=== PATIENT | female | born 1995 | race Caucasian/White ===

== ENCOUNTER 2021-11-07 16:35 | Outpatient (REF) | payer BC, SELFPAY ==
--- NOTE | 2021-11-07 16:00 | PAPFT_PTH ---
PATIENT: Erika Macdonald LOC: [facility] U#:[id number] AGE/SX: 26/F ROOM: RE11/07/[address]: Swetha Smyth : 1995 BED: DIS: 11/07/2021 SPEC #: [id number] RECD: 11/07/21 18:08 STATUS: NORMA BARNES #: [id number] MARC: 11/07/21 16:[address]: Swetha Smyth DEPT: [facility] Cytology RECD BY: Joselyn Garcia ENTERED: 11/07/21 18:08 SP TYPE: PAPFT OTHR DR: Gala Copeland APRN Tissues: 1 - CX/ENDOCX FOR PAP SMEARS Procedures: PAP THIN PREP/UVM Screening Comments: [id number]
[2021-11-09 15:07] LABS: Chlamydia Result Negative (Negative); GC Result Negative (Negative)
== END 2021-11-07 16:36 | disposition home or self-care (01) ==
LOC: LBN 16:35
PROVIDERS: PCP Nurse Practitioner; Visit Provider Obstetrics & Gynecology Gynecology
DX: Z11.3 Encounter for screening for infections with a predominantly sexual mode of transmission (principal); Z12.4 Encounter for screening for malignant neoplasm of cervix
CPT/HCPCS: 87491; 87591; 88142

== ENCOUNTER 2021-12-04 05:48 | Outpatient (CLI) | payer BC, SELFPAY ==
[2021-12-04 07:25] LABS: HCT 44.2 % (36.0-46.0); HGB 13.7 g/dL (11.2-15.7); MCH 26.3 pg (27.0-33.0); MPV 9.9 fL (8.0-11.0); Platelet Count 293 10^3/uL (130-400); RDW 15.9 % (11.7-14.6); RDW-SD 49.5 fL; WBC 10.04 10^3/uL (4.4-10.8)
[2021-12-04 07:41] LABS: Hemoglobin A1C 6.4 % (<5.7)
[2021-12-04 07:58] LABS: ALT 29 U/L (14-59); AST 14 U/L (15-37); Albumin 3.3 g/dL (3.4-5.0); Alkaline Phosphatase 57 U/L (46-116); Anion Gap 6.6 mmol/L (3-11); BUN 17 mg/dL (7-18); Bilirubin, Total 0.2 mg/dL (0.2-1.0); CO2 29.4 mmol/L (21.0-32.0); CREATININE 0.7 mg/dL (0.55-1.02); Calcium 8.7 mg/dL (8.5-10.1); Calculated LDL 134 mg/dL (<100); Chloride 106 mmol/L (98-107); Cholesterol 214 mg/dL (<200); Glucose 107 mg/dL (74-106); HDL Cholesterol 32 mg/dL (40-60); Potassium 4.4 mmol/L (3.5-5.1); Sodium 142 mmol/L (136-145); TSH (W/Ref FT4) 17.24 uIU/mL (0.36-3.74); Total Protein 7.1 g/dL (6.4-8.2); Triglyceride 241 mg/dL (<150)
[2021-12-04 08:20] LABS: FREE T4 0.61 ng/dL (0.76-1.46)
== END 2021-12-04 05:49 | disposition home or self-care (01) ==
LOC: LBO 05:48
PROVIDERS: PCP Nurse Practitioner; Visit Provider Nurse Practitioner
DX: I10 Essential (primary) hypertension (principal); E66.01 Morbid (severe) obesity due to excess calories; N91.5 Oligomenorrhea, unspecified
CPT/HCPCS: 36415; 80053; 80061; 85027; 83036; 84439; 84443

== ENCOUNTER 2022-01-02 04:35 | Outpatient (CLI) | payer BC, SELFPAY ==
--- NOTE | 2022-01-02 15:00 | NS.NUTBLAN_ITS ---
Erika was referred to medical nutrition therapy for weight and glycemic management. PMH: hypothyroidism, prediabetes, morbid obesity, HTN 5'2 364 lbs BMI: 67 11/30/21: A1C: 6.4% Chol: 214, LDL: 135, HDL: 32, tri TSH high- just started Synthroid Prescribed Jardiance .25 mg1 week- has not picked up yet Diet Recall: skips Breakfast, Lunch: granola bar and water, Dinner: sandwich and milk. Is a vegetarian- will eat eggs, cheese and beans for protein. Dislikes tofu and tempeh. Drinks mostly water. Also drinks 1% milk as beverage often Exercise: None at this time: walks at her work. Works 2 jobs- on her feet most of day Erika reports that she weighed 200 lbs by the time she was 7 years old. Her whole family is big. Her uncle had weight loss surgery a couple years ago but regained most of the weight. Did not adhere to diet post op. Erika wants to be healthier. She does not overeat and likes vegetables. Often has to force herself to eat- very picky. Has been frustrated about gaining weight without eating large quantities. We discussed benefits of bariatric surgery for significant weight loss. She is interested in pursuing this avenue. Also, educated Erika on how to follow a 1200 kcal meal plan with focuses on 3 meals per day, using protein shakes to meet protein needs while a vegetarian. Encouraged her to add 2 protein shakes daily (B,L) and to eat 1/2 plate of family meal at night and a plateful of salad/vegetables. She is already taking MVI and Vit D. Goal Wt Loss: 10 lbs q 4 weeks. Follow up scheduled for 02/08/22 at 2 pm
== END 2022-01-02 04:36 | disposition home or self-care (01) ==
LOC: DS 04:35
PROVIDERS: PCP Nurse Practitioner; Visit Provider Dietitian, Registered
DX: E66.01 Morbid (severe) obesity due to excess calories (principal); R73.03 Prediabetes; Z68.44 Body mass index [BMI] 60.0-69.9, adult; Z71.3 Dietary counseling and surveillance
CPT/HCPCS: 97802

== ENCOUNTER 2022-02-06 01:54 | Outpatient (CLI) | payer BC, SELFPAY ==
[2022-02-06 08:00] LABS: TSH (W/Ref FT4) 8.88 uIU/mL (0.36-3.74)
[2022-02-06 08:21] LABS: FREE T4 0.81 ng/dL (0.76-1.46)
== END 2022-02-06 01:55 | disposition home or self-care (01) ==
LOC: LBO 01:54
PROVIDERS: PCP Nurse Practitioner; Visit Provider Nurse Practitioner
DX: E03.9 Hypothyroidism, unspecified (principal)
CPT/HCPCS: 36415; 84439; 84443

== ENCOUNTER 2022-02-08 03:45 | Outpatient (CLI) | payer BC, SELFPAY ==
--- NOTE | 2022-02-08 11:00 | NS.NUTBLAN_ITS ---
Erika returns for weight management education. Wt: 358 lbs, 5'2 - down 6 lbs in last 30 days. BMI: 66 Diet Recall: Muscle milk protein shake for B, L. Salad with shrimp or cottage cheese at night. Mostly vegetarian. Session today focused on protein sources that she will consume as a vegetarian. She includes shrimp, cheese, eggs. She enjoys salads but reports that she often has to remind herself to eat. She was pleased that she was able to lose by eating more food. Erika has a referral from her PCP for [facility] bariatric program. She has had a difficult time getting ahold of them and scheduling the intro session. We called [facility] together and sat on hold for 20 minutes. [facility] Director will contact Bariatric chief program officer to assist in getting Erika started on her weight loss journey. Follow up scheduled for 03/15/22 at 2 pm.
== END 2022-02-08 03:46 | disposition home or self-care (01) ==
LOC: DS 03:46
PROVIDERS: PCP Nurse Practitioner; Visit Provider Dietitian, Registered
DX: E66.01 Morbid (severe) obesity due to excess calories (principal); Z68.44 Body mass index [BMI] 60.0-69.9, adult; Z71.3 Dietary counseling and surveillance
CPT/HCPCS: 97803

== ENCOUNTER 2022-03-22 01:47 | Outpatient (CLI) | payer BC, SELFPAY ==
--- NOTE | 2022-03-22 14:00 | NS.NUTBLAN_ITS ---
Erika returns for weight management education prior to bariatric surgery at [facility] [place]. 5'2 357 lbs? BMI: 66 11/30/21: A1C: 6.4% TSH high- just started Synthroid, Jardiance, multi vitamin and Vit D. Diet Recall: B: protein shake, L: caesar salad and protein shake, D: morning star burger- no bun and vegetables. Erika has lost 7 lbs since starting to follow a lower carb, higher protein diet. She has switched to a higher protein shake (Muscle Milk Pro- 32 g pr/shake) as she finds it difficult to meet her protein needs as a vegetarian. She includes eggs and morning star products, sometimes tofu. She continues to be active during day, walking daily for about 20 minutes. She recently received a packet of info to fill out for [facility] [place] [place]. She has completed her 3 visits with dietitian and has done well. No follow up planned until after surgery. Will be available prn.
== END 2022-03-22 01:48 | disposition home or self-care (01) ==
LOC: DS 01:47
PROVIDERS: PCP Nurse Practitioner; Visit Provider Dietitian, Registered
DX: E66.01 Morbid (severe) obesity due to excess calories (principal); Z68.44 Body mass index [BMI] 60.0-69.9, adult; Z71.3 Dietary counseling and surveillance
CPT/HCPCS: 97803

== ENCOUNTER 2022-04-05 01:21 | Outpatient (CLI) | payer BC, SELFPAY ==
[2022-04-05 08:15] LABS: TSH 5.18 uIU/mL (0.36-3.74)
== END 2022-04-05 01:22 | disposition home or self-care (01) ==
LOC: LBO 01:21
PROVIDERS: PCP Nurse Practitioner; Visit Provider Nurse Practitioner
DX: E03.9 Hypothyroidism, unspecified (principal)
CPT/HCPCS: 36415; 84439; 84443

== ENCOUNTER 2022-08-27 19:54 | Emergency (ER) | payer BC, SELFPAY ==
[2022-08-27 20:03] VITALS: BP 148/85; PULSE 87; RESP 18; TEMP 37; O2SAT 97
--- NOTE | 2022-08-27 20:43 | ED.GENADUL_ITS ---
Discharge Plan Disposition Patient Disposition: Home Condition: Stable Discharge Details Clinical Impression: Cellulitis Primary Care Provider: Gala Copeland ED Provider: John Watson Home Meds and New Rx's Prescriptions: New sulfamethoxazole-trimethoprim [Bactrim DS] 800-160 mg tablet 1 tab PO BID Qty: 20 0RF erythromycin 5 mg/gram (0.5 %) ointment 0.5 inch ophthalmic (eye) QID Qty: 3.5 0RF Continued multivitamin Tablet 1 tab PO DAILY cholecalciferol (vitamin D3) 25 mcg (1,000 unit) capsule 25 mcg PO DAILY hydrochlorothiazide 25 mg tablet 25 mg PO DAILY Qty: 90 3RF COVID-19 vacc,mRNA(Moderna)-PF 100 mcg/0.5 mL suspension 0.25 ml IM ONCE Qty: 0.25 0RF metformin 500 mg tablet 500 mg PO BID Qty: 60 3RF levothyroxine 75 mcg tablet 75 mcg PO DAILY Qty: 90 3RF medroxyprogesterone [Provera] 5 mg tablet 10 mg PO DAILY 28 Days Qty: 120 3RF norethindrone acetate [Aygestin] 5 mg tablet 5 mg PO BID Qty: 120 1RF Discharge Instructions Instructions: Cellulitis (ED) Additional Instructions: Erythromycin and Ilotycin as directed. Warm moist compresses every 2 hours for 20 minutes. Please watch for new or worsening symptoms and return to the ER for any concerns. Lastly, I recommend contacting your primary care provider tomorrow to discuss your ER visit, ongoing symptoms, and need for outpatient reevaluation. Medical Decision Making 27-year-old female with a past medical history of hypertension, hypothyroidism, obesity, prediabetes, does not wear contacts or glasses, presents for what she describes as left eye irritation that began this morning, subsequently throughout the day noticed minor erythema and swelling to her upper lid, had small amount of drainage this evening. She denies any change of vision. Visual acuities 20/20 left 20/30 right 20/30 bilateral. She denies any other symptoms such as headache, fever, nasal congestion, sore throat, etc. Clinically she appears well, nontoxic, afebrile. Given her mild conjunctival erythema, discharge, question conjunctivitis. Denies any injury or trauma. Given her minimal swelling of her left upper lid, erythema, no evidence of stye, concern for mild localized cellulitis. Clinically there does not appear to be any obvious evidence of orbital cellulitis. Denies any pain with movement of her eye. Plan to treat with erythromycin topically as well as p.o. Bactrim. We will provide first dose now. Standard discharge and return precautions were provided. Patient understands, is agreeable to this plan, and has no additional questions or concerns upon discharge. This documentation was generated using [employer] dictation system, please disregard any oddities of phrase or misspellings. Medical Records Medical records reviewed: Yes I reviewed the patient's medical records. HPI General Mode of arrival: ambulatory . Date/Time Provider Initiated Documentation: 08/27/22 20:12 . Limitations to Documentation: no limitations . Information obtained by: patient and family . History of Present Illness 27 year old F presents to the emergency department with the chief complaint of L eye infection, described as mild, with intensity rated at 3. Quality is described as aching, and is localized to the eyes (Periorbital region) and left. Patient reports no radiation. Patient started experiencing this hour(s) (13) and it has been constant. No relieving factors improve symptom(s), No exacerbating factors reported . Patient notes no other symptoms.. Patient did receive the following treatments prior to arrival, none Related Data Home Medications Medication Instructions Recorded Confirmed cholecalciferol (vitamin D3) 25 25 mcg PO DAILY 10/30/21 06/17/22 mcg (1,000 unit) capsule multivitamin 1 tab PO DAILY 10/30/21 06/17/22 hydrochlorothiazide 25 mg tablet 25 mg PO DAILY #90 tabs 12/10/21 06/17/22 levothyroxine 75 mcg tablet 75 mcg PO DAILY #90 tabs 02/06/22 06/17/22 medroxyprogesterone 5 mg tablet 10 mg PO DAILY 4 weeks #120 tabs 03/19/22 06/17/22 (Provera) norethindrone acetate 5 mg tablet 5 mg PO BID #120 tabs 03/20/22 06/17/22 (Aygestin) metformin 500 mg tablet 500 mg PO BID #60 tabs 06/17/22 06/17/22 erythromycin 5 mg/gram (0.5 %) eye 0.5 inch ophthalmic (eye) QID #3.5 08/27/22 ointment grams sulfamethoxazole 800 1 tab PO BID #20 tabs 08/27/22 mg-trimethoprim 160 mg tablet (Bactrim DS) Previous Rx's Medication Instructions Recorded hydrochlorothiazide 25 mg tablet 25 mg PO DAILY #90 tabs 12/10/21 levothyroxine 75 mcg tablet 75 mcg PO DAILY #90 tabs 02/06/22 medroxyprogesterone 5 mg tablet 10 mg PO DAILY 4 weeks #120 tabs 03/19/22 (Provera) norethindrone acetate 5 mg tablet 5 mg PO BID #120 tabs 03/20/22 (Aygestin) metformin 500 mg tablet 500 mg PO BID #60 tabs 06/17/22 erythromycin 5 mg/gram (0.5 %) eye 0.5 inch ophthalmic (eye) QID #3.5 08/27/22 ointment grams sulfamethoxazole 800 1 tab PO BID #20 tabs 08/27/22 mg-trimethoprim 160 mg tablet (Bactrim DS) Allergies Allergy/AdvReac Type Severity Reaction Status Date / Time No Known Allergies Allergy Verified 01/09/22 15:07 General Stated Complaint: EyeProblem SEBASTIÁN: 4 Review of Systems Constitutional Constitutional: Denies fever(s) and Denies headache(s) Eyes Eyes: Denies change in vision, Reports eye discharge and Reports irritation ENT Ears, Nose, Mouth, and Throat: Denies headache(s) and Denies neck pain Musculoskeletal Musculoskeletal: Denies neck pain Integumentary/Breasts Skin/Breast: Reports erythema Neurologic Neurologic: Denies headache(s) PFSH All Active Problems (Updated 08/27/22 @ 20:56 by TEJAL Terrell) Cellulitis (Acute) Abnormal uterine bleeding (AUB) (Acute) Pre-diabetes (Acute) HTN (hypertension), benign (Acute) Hypothyroidism (Chronic) Contraceptive surveillance, unspecified (Acute) 10/2021. Pt not sexually active. Morbid obesity with BMI of 60.0-69.9, adult (Acute) Oligomenorrhea (Acute) 10/2021. No menses x 1yr. 11/2021 agrees to q3mo Provera induced withdrawal bleed. Surgical History History of cholecystectomy (~09/24/12) Family History Maternal Grandmother Anxiety Heart disease Hypertension Maternal Uncle Asthma Heart disease Hypertension Brother Asthma Maternal Cousin Asthma Maternal Aunt Asthma Paternal Cousin Lung cancer Maternal Grandfather Cancer Diabetes Hypertension Paternal Grandfather , Heart attack Diabetes Heart disease Hypertension Paternal Grandmother Multiple sclerosis Other Depression Social History Smoking/Tobacco Use Status: Never Second Hand Exposure: No Smoking risk assessment performed?: Yes Alcohol Intake: current Alcohol Intake frequency: a few times a month Drug use: Never Substance use type: does not use Adopted: No Caregiver/Support person: No Foster care: No Household members: family and other Details: Multiple family members live in her uncle's house Housing: house Number of Children: 0 number of grandchildren: 0 Communication Needs: None Education Level: high school Do you need help understanding health information?: Rarely 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[employer], 4, 5, 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[employer] [place] Pets and animals: Yes Pets and animals: cat(s) Sexually active: Yes Do you think of yourself as: straight/heterosexual Current gender identity: female What is your relationship status?: never How often do you talk on the phone with friends or family?: never How often do you get together with friends or relatives?: twice per week Do you belong to any clubs or organized social groups?: no Panel score (0-1 are the most socially isolated patients): 0 What type of physical activity do you participate in: none Special katya needs: No Seatbelt use: always Helmet use: Yes Helmet use: always Drive intox or ride w/intox mobile lounge driver or operator: No Do you feel safe at home: Yes Do you feel safe in your relationship?: Yes Female Reproductive History Menstrual Age of Menarche: 11 control method: none History History 0 Para Hx # Term Pregnancies Multiple births Hx # Pregnancies Ectopic pregnancies AB induced Hx Number of Living Children AB spontaneous Exam Const General: cooperative, healthy appearing, comfortable and no acute distress Orientation: alert and awake HENMT Head: normal to inspection, normocephalic and atraumatic General nose exam: external nose normal Mouth: oral mucosae normal and moist mucous membranes Eyes Alignment and Position: alignment normal Periorbital: periorbital findings abnormal left periorbital erythema Eyelids: eyelid abnormality left upper eyelid erythema, swelling and tenderness Conjunctivae: conjunctival abnormality left conjunctival injection Sclera: sclerae normal Cornea: corneas normal Pupils: PERRL EOM: EOM intact bilaterally Direct ophthalmoscopy: normal light reflex Neck Neck: normal visual inspection, full ROM, no meningeal signs, trachea midline and supple Resp Effort & Inspection: normal respiratory effort and able to speak in complete sentences Skin General skin exam: erythema Neuro General: patient alert, patient awake, moves all extremities and no focal motor deficits Cognition: normal cognition Speech: speech normal Gait: normal gait Sensory Exam: no sensory deficits noted Psych Appearance: grossly normal Mental Status: mental status grossly normal Course Vital Signs Vital signs: Vital Signs Temperature 37.0 C 08/27/22 20:03 Pulse 87 08/27/22 20:03 Respiratory Rate 18 08/27/22 20:03 Blood Pressure 148/85 H 08/27/22 20:03 Pulse Oximetry 97 08/27/22 20:03 Temperature 37.0 C 08/27/22 20:03 Temperature Source Tympanic 08/27/22 20:03 Pulse 87 08/27/22 20:03 Respiratory Rate 18 08/27/22 20:03 Respiratory Effort 08/27/22 20:10 Blood Pressure 148/85 H 08/27/22 20:03 Blood Pressure Position Sitting 08/27/22 20:03 Pulse Oximetry 97 08/27/22 20:03 Oxygen Delivery Method Room Air 08/27/22 20:03 Oxygen Flow Rate 0 08/27/22 20:03 Pain Level 6 08/27/22 20:03 PAWSS Have you Been Recently Intoxicated or Drunk Within the Last 30 days?: No Have you Ever Experienced Previous Episodes of Alcohol Withdrawal?: No Have you ever Experienced Withdrawal Seizures?: No Have you ever Experienced Delirium Tremens(DT)s?: No Have you ever undergone Alcohol Rehabilitation Treatment (i.e, inpt ot outpatient treatment programs)?: No Have you ever Experienced Blackouts?: No Have you ever Combined Alcohol with other Downers within the last 90 days?: No Have you ever Combined Alcohol with any other Substance of Abuse during the last 90 days?: No Positive Blood Alcohol level on Presentation? [PCS.BAL]: No Evidence of Increased Autonomic Activity (i.e. HR>120, tremor, sweating, agitation, nausea)?: No Result: 0
[2022-08-27] MEDS: Sulfameth/Trimeth DS TAB 1 TAB PO (20:51)
[2022-08-27] MEDS: Erythromycin Ophth Oint 3.5 GM TUBE OU (20:51)
== END 2022-08-27 21:03 | disposition home or self-care (01) ==
PROVIDERS: Emergency Provider Physician Assistant; PCP Nurse Practitioner
DX: H00.034 Abscess of left upper eyelid (principal)
CPT/HCPCS: 99283; 99284

== ENCOUNTER 2022-11-13 03:08 | Outpatient (CLI) | payer BC, SELFPAY ==
[2022-11-13 07:11] LABS: HCT 39.8 % (36.0-46.0); HGB 12.6 g/dL (11.2-15.7); MCHC 31.7 % (32.0-36.0); MCV 79 fL (80-95); MPV 9.3 fL (8.0-11.0); Platelet Count 340 10^3/uL (130-400); RBC 5.05 10^6/uL (3.93-5.22); RDW 17.6 % (11.7-14.6); RDW-SD 49.8 fL; WBC 7.77 10^3/uL (4.4-10.8)
[2022-11-13 07:58] LABS: ALT 31 U/L (14-59); AST 17 U/L (15-37); Albumin 3.2 g/dL (3.4-5.0); Alkaline Phosphatase 46 U/L (46-116); Anion Gap 5.6 mmol/L (3-11); BUN 21 mg/dL (7-18); Bilirubin, Total 0.2 mg/dL (0.2-1.0); CO2 32.4 mmol/L (21.0-32.0); CREATININE 0.8 mg/dL (0.55-1.02); Calcium 9.1 mg/dL (8.5-10.1); Calculated LDL 128 mg/dL (<100); Chloride 104 mmol/L (98-107); Cholesterol 192 mg/dL (<200); Estimated GFR 102.22 (mL/min/1.73m2); Glucose 101 mg/dL (74-106); HDL Cholesterol 37 mg/dL (40-60); Potassium 3.6 mmol/L (3.5-5.1); Sodium 142 mmol/L (136-145); TSH (W/Ref FT4) 4.08 uIU/mL (0.36-3.74); Total Protein 7.8 g/dL (6.4-8.2); Triglyceride 136 mg/dL (<150)
[2022-11-13 08:23] LABS: FREE T4 0.99 ng/dL (0.76-1.46)
== END 2022-11-13 03:09 | disposition home or self-care (01) ==
LOC: LBO 03:08
PROVIDERS: PCP Nurse Practitioner; Visit Provider Nurse Practitioner
DX: E03.9 Hypothyroidism, unspecified (principal); E78.5 Hyperlipidemia, unspecified; I10 Essential (primary) hypertension; R73.03 Prediabetes
CPT/HCPCS: 36415; 80053; 80061; 85027; 84439; 84443

== ENCOUNTER 2023-09-09 07:27 | Emergency (ER) | payer BC, SELFPAY ==
[2023-09-09 07:30] VITALS: BP 167/65; PULSE 89; RESP 20; TEMP 37.2; O2SAT 100
--- NOTE | 2023-09-09 07:51 | ED.GENADUL_ITS ---
HPI General Date/Time Provider Initiated Documentation: 09/09/23 07:36 . HPI Narrative: 28-year-old female with a past medical history of hypertension, hypothyroidism, diabetes, a BMI of 63, who presents today for evaluation of pain in her right hand and forearm. Patient states that for the last 1 to 2 months she has had intermittent tingling and pain in her right hand and forearm which usually occurs at night while she is sleeping. It gets better in the day when she wakes up. She denies any trauma. She denies any headache or neck pain. She denies any previous surgeries. However today symptoms persisted after this morning when she woke up and she continues to have mild achiness and pain in her right hand and forearm. She denies fever or chills. She denies any IV or illicit drug use. No other complaints at this time. Pain is slightly made worse with movement of the hand and fingers, especially extension of the hand/wrist. She denies any focal trauma to that area. Related Data Home Medications Medication Instructions Recorded Confirmed cholecalciferol (vitamin D3) 25 25 mcg PO DAILY 10/30/21 09/09/23 mcg (1,000 unit) capsule multivitamin 1 tab PO DAILY 10/30/21 09/09/23 hydrochlorothiazide 25 mg tablet 25 mg PO DAILY #90 tabs 12/23/22 09/09/23 levothyroxine 75 mcg tablet 75 mcg PO DAILY #90 tabs 03/19/23 09/09/23 metformin 500 mg tablet 1,000 mg (2 x 500 mg) PO DAILY 03/19/23 09/09/23 #180 tabs Previous Rx's Medication Instructions Recorded hydrochlorothiazide 25 mg tablet 25 mg PO DAILY #90 tabs 12/23/22 levothyroxine 75 mcg tablet 75 mcg PO DAILY #90 tabs 03/19/23 metformin 500 mg tablet 1,000 mg (2 x 500 mg) PO DAILY 03/19/23 #180 tabs Allergies Allergy/AdvReac Type Severity Reaction Status Date / Time No Known Allergies Allergy Verified 09/09/23 07:34 General Stated Complaint: Cellulitis SEBASTIÁN: 3 Review of Systems All systems reviewed & are unremarkable except as noted in HPI and below Exam Narrative Exam Narrative: 1.Const: Well-nourished, Well-developed, appearing stated age 2.Eyes: PERRL, no conjunctival injection, and symmetrical lids. 3.ENT: Atraumatic external nose and ears. Moist MM. Neck: Symmetric, trachea midline, No thyromegaly. 4.CVS: +S1/S2, No murmurs or gallops. Peripheral pulses 2+ and equal in all extremities. Brisk capillary refill in all extremities. 5.RESP: Unlabored respiratory effort. Clear to auscultation bilaterally. No wheezes rales or rhonchi 6.GI: Soft, Nontender/Nondistended, No hepatosplenomegaly. No guarding or rebound. 7.MSK: Normocephalic/Atraumatic, Extremities w/o deformity or ttp No cyanosis or clubbing, Normal movement of all extremities. Patient demonstrates worsening pain in the hand with extension at the wrist, and stretching of the carpal tunnel. Negative Finklestein's test. No erythema for the hand wrist or forearm. No focal tenderness over the wrist. 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 Good abduction and movement of the thumb and index finger. Good opposition. No pain in the forearm or elbow. Patient does have mild spasm of the scalene musculat ure in the right neck. No focal tenderness though otherwise. 8.Skin: Warm, Dry. No rashes or lesions. 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 Sensation grossly intact, no focal neurologic deficits. 10.Psych: (AAO) x3. Appropriate mood and affect Course Vital Signs Vital signs: Vital Signs Temperature 37.2 C 09/09/23 07:30 Pulse 89 09/09/23 07:30 Respiratory Rate 20 09/09/23 07:30 Blood Pressure 167/65 H 09/09/23 07:30 Pulse Oximetry 100 09/09/23 07:30 Temperature 37.2 C 09/09/23 07:30 Temperature Source Temporal Artery Scan 09/09/23 07:30 Pulse 89 09/09/23 07:30 Respiratory Rate 20 09/09/23 07:30 Respiratory Effort Normal, Non-Labored 09/09/23 07:35 Blood Pressure 167/65 H 09/09/23 07:30 Blood Pressure Position Sitting 09/09/23 07:30 Pulse Oximetry 100 09/09/23 07:30 Oxygen Delivery Method Room Air 09/09/23 07:30 Oxygen Flow Rate 0 09/09/23 07:30 Medical Decision Making 28-year-old female with a past medical history of hypertension, hypothyroidism, diabetes, a BMI of 63, who presents today for evaluation of pain in her right hand and forearm. Patient states that for the last 1 to 2 months she has had intermittent tingling and pain in her right hand and forearm which usually occurs at night while she is sleeping. It gets better in the day when she wakes up. She denies any trauma. She denies any headache or neck pain. She denies any previous surgeries. However today symptoms persisted after this morning when she woke up and she continues to have mild achiness and pain in her right hand and forearm. She denies fever or chills. She denies any IV or illicit drug use. No other complaints at this time. Pain is slightly made worse with movement of the hand and fingers, especially extension of the hand/wrist. She denies any focal trauma to that area. Physical exam demonstrates no concerning abnormalities to suggest cellulitis trauma fracture or other significant abnormalities. The patient's distribution of tingling and irritation in the hand, as well as the scalene spasm noted in her neck, I am concerned for potential carpal tunnel syndrome primarily, and then thoracic outlet syndrome secondarily. No indication for emergent imaging at this time with an absence of a history of trauma. Will recommend stretching exercises for wrist and neck, will give wrist splint for carpal tunnel rest, will recommend continued NSAIDs at home as well as outpatient physical therapy. If patient's symptoms persist she may need further neuroimaging or potential osseous imaging, however at this time no indication for emergent imaging based on current clinical exam and assessment. Patient otherwise stable. Discussed red flags for which to return. I have extensively reviewed the treatment plan and discharge instructions with the patient and their family. I have addressed all patient concerns at this time. The patient and family was made aware of what symptoms to monitor for that would warrant a return to the emergency department. Discussed the plan with the patient and family, they demonstrate verbal understanding and agreement with our assessment and plan at this time. The documentation in this chart was dictated using [employer] dictation software. Please excuse any dictation errors. Quality:SDOH Health Related Social Needs: No Data to Display PFSH All Active Problems Nerve pain (Acute) Carpal tunnel syndrome (Acute) Thoracic outlet syndrome (Acute) Hyperlipidemia (Acute) Abnormal uterine bleeding (AUB) (Acute) Pre-diabetes (Acute) HTN (hypertension), benign (Acute) Hypothyroidism (Chronic) Contraceptive surveillance, unspecified (Acute) 10/2021. Pt not sexually active. Morbid obesity with BMI of 60.0-69.9, adult (Acute) Oligomenorrhea (Acute) 10/2021. No menses x 1yr. 11/2021 agrees to q3mo Provera induced withdrawal bleed. Surgical History History of cholecystectomy (~09/24/12) Family History Maternal Grandmother Anxiety Heart disease Hypertension Maternal Uncle Asthma Heart disease Hypertension Brother Asthma Maternal Cousin Asthma Maternal Aunt Asthma Paternal Cousin Lung cancer Maternal Grandfather Cancer Diabetes Hypertension Paternal Grandfather , Heart attack Diabetes Heart disease Hypertension Paternal Grandmother Multiple sclerosis Other Depression Social History Smoking/Tobacco Use Status: Never Second Hand Exposure: No Smoking risk assessment performed?: Yes Alcohol Intake: current Alcohol Intake frequency: a few times a month Drug use: Never Substance use type: does not use Adopted: No Caregiver/Support person: No Foster care: No Household members: family and other Details: Multiple family members live in her uncle's house Housing: house Number of Children: 0 number of grandchildren: 0 Communication Needs: None Education Level: high school Do you need help understanding health information?: Rarely 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[employer], 4, 5, 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[employer] [place] Pets and animals: Yes Pets and animals: cat(s) Sexually active: Yes Do you think of yourself as: straight/heterosexual Current gender identity: female What is your relationship status?: never How often do you talk on the phone with friends or family?: never How often do you get together with friends or relatives?: twice per week Do you belong to any clubs or organized social groups?: no Panel score (0-1 are the most socially isolated patients): 0 What type of physical activity do you participate in: none Special katya needs: No Seatbelt use: always Helmet use: Yes Helmet use: always 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 Do you feel safe at home: Yes Do you feel safe in your relationship?: Yes Female Reproductive History Menstrual Age of Menarche: 11 control method: none History History 0 Para Hx # Term Pregnancies Multiple births Hx # Pregnancies Ectopic pregnancies AB induced Hx Number of Living Children AB spontaneous PAWSS Have you Been Recently Intoxicated or Drunk Within the Last 30 days?: No Have you Ever Experienced Previous Episodes of Alcohol Withdrawal?: No Have you ever Experienced Withdrawal Seizures?: No Have you ever Experienced Delirium Tremens(DT)s?: No Have you ever undergone Alcohol Rehabilitation Treatment (i.e, inpt ot outpatient treatment programs)?: No Have you ever Experienced Blackouts?: No Have you ever Combined Alcohol with other Downers within the last 90 days?: No Have you ever Combined Alcohol with any other Substance of Abuse during the last 90 days?: No Positive Blood Alcohol level on Presentation? [PCS.BAL]: No Evidence of Increased Autonomic Activity (i.e. HR>120, tremor, sweating, agitation, nausea)?: No Result: 0 Discharge Plan Disposition Patient Disposition: Home Discharge Details Clinical Impression: Thoracic outlet syndrome, Carpal tunnel syndrome, Nerve pain Primary Care Provider: Gala Copeland ED Provider: Dio Bartlett Home Meds and New Rx's Prescriptions: No Action levothyroxine 75 mcg tablet 75 mcg PO DAILY Qty: 90 3RF metformin 500 mg tablet 1,000 mg PO DAILY Qty: 180 3RF multivitamin Tablet 1 tab PO DAILY cholecalciferol (vitamin D3) 25 mcg (1,000 unit) capsule 25 mcg PO DAILY hydrochlorothiazide 25 mg tablet 25 mg PO DAILY Qty: 90 3RF Discharge Instructions Instructions: Thoracic Outlet Syndrome (ED), Carpal Tunnel Surgery (DC) Additional Instructions: At this time your symptoms appear appear consistent with irritation from carpal tunnel or thoracic outlet syndrome. Please take 800 mg of Motrin every 6 hours and 1000 mg of Tylenol every 6 hours for the next few days. These are the maximum doses. Please use the wrist splint to help give some respite for your symptoms. Please perform the stretches of your wrist and your neck as you were shown. Please use heat for your neck to help with any pain or spasm there. We have placed a referral with physical therapy, they will contact you for an appointment time. If you notice any worsening of your symptoms, or any new symptoms such as vomiting, diarrhea, fever, chills, shortness of breath, chest pain, numbness, weakness, or fainting , please return immediately to the emergency department for reevaluation. Please follow up with your primary care provider as soon as possible for reassessment and reevaluation. As always, it was a pleasure participating in your medical care today. Stand Alone Forms: Work Release Discharge Data Discharge Date/Time-TO BE ENTERED AT DEPARTURE: 09/09/23 08:07
--- NOTE | 2023-09-09 07:54 | NUR.NOTE ---
Referral faxed to Physical Therapy for Thoracic Outlet Syndrome and Carpal Tunnel evaluation within 1-2 weeks.
== END 2023-09-09 08:07 | disposition home or self-care (01) ==
PROVIDERS: Emergency Provider Student in an Organized Health Care Education/Training Program; PCP Nurse Practitioner
DX: M79.2 Neuralgia and neuritis, unspecified (principal); G56.01 Carpal tunnel syndrome, right upper limb; E03.9 Hypothyroidism, unspecified; R73.03 Prediabetes; E66.01 Morbid (severe) obesity due to excess calories; Z68.44 Body mass index [BMI] 60.0-69.9, adult
CPT/HCPCS: 29125; 99283

== ENCOUNTER 2023-09-09 23:48 | Emergency (ER) | payer BC, SELFPAY ==
[2023-09-09 23:51] VITALS: BP 169/91; PULSE 92; RESP 16; TEMP 36.5; O2SAT 98
--- NOTE | 2023-09-09 23:55 | W.ED.GENAD ---
HPI General Mode of arrival: ambulatory. Date/Time Provider Initiated Documentation: 09/09/23 23:51. Limitations to Documentation: no limitations. Information obtained by: patient and old records reviewed. HPI Narrative: 28yo right-handed F with HTN, prediabetes, obesity, presenting for right hand pain. Seen in this ED this morning for the same and was advised tylenol and ibuprofen at home, provided with wrist splint. Pain is burning/tingling, severe, and located in her right hand across the palm and in the thumb and 2nd and 3rd digits, worst at the fingertips. Pain is severe and worse with movement at her right wrist. Not worse with movements involving hands above her head (brushing hair, etc). No color change in her hands or fingers. No weakness. She has not noted worsening at any particular time of time. She is able to ignore at while she is busy but when resting it seems worse. Started several weeks ago, initially intermittent but has been progressively worsening and today was constant. Has been wearing splint and taking OTC meds at home as she was instructed today, however her pain remains severe. It has not worsened since her prior visit but it is persistent. She is otherwise in her usual state of health with no fevers, chills, rash, nausea, vomiting, headache, numbness/tingling elsewhere, or other concerns. Related Data Home Medications Medication Instructions Recorded Confirmed cholecalciferol (vitamin D3) 25 25 mcg PO DAILY 10/30/21 09/10/23 mcg (1,000 unit) capsule multivitamin 1 tab PO DAILY 10/30/21 09/10/23 hydrochlorothiazide 25 mg tablet 25 mg PO DAILY #90 tabs 12/23/22 09/10/23 levothyroxine 75 mcg tablet 75 mcg PO DAILY #90 tabs 03/19/23 09/10/23 metformin 500 mg tablet 1,000 mg (2 x 500 mg) PO DAILY 03/19/23 09/10/23 #180 tabs gabapentin 300 mg capsule 300 mg PO TID #45 caps 09/10/23 Previous Rx's Medication Instructions Recorded hydrochlorothiazide 25 mg tablet 25 mg PO DAILY #90 tabs 12/23/22 levothyroxine 75 mcg tablet 75 mcg PO DAILY #90 tabs 03/19/23 metformin 500 mg tablet 1,000 mg (2 x 500 mg) PO DAILY 03/19/23 #180 tabs gabapentin 300 mg capsule 300 mg PO TID #45 caps 09/10/23 Allergies Allergy/AdvReac Type Severity Reaction Status Date / Time No Known Allergies Allergy Verified 09/10/23 00:00 General SEBASTIÁN: 3 Review of Systems Narrative: see HPI Exam Narrative Exam Narrative: General: Alert, well appearing, obese, in no acute distress. Head: Normocephalic, atraumatic Neck: Trachea midline, ?Neck supple. Cardiac: ?Well perfused Resp: No respiratory distress. Speaking in full sentences. : ?No suprapubic tenderness. No CVA tenderness. Upper extremities: ?No deformities.? Strong symmetric radial pulses bilaterally. Intact and symmetric capillary refill all digits bilateral UE. No color change. No edema. No muscle wasting. Sensation to light touch intact and symmetric throughout bilateral upper extremities including upper arm, forearm, palms, and digits. Pain in hand with passive extension and flexion at right wrist (extension > flexion). Negative Finklesteins. No pain with passive ROM at elbow or shoulder on right. 5/5 strength at bilateral shoulders and elbows. 5/5 finger abduction bilaterally. 4+/5 shift production associate strength and wrist flexion/extension on right, suspect 2/t pain/effort. 5/5 on left. Medical Decision Making 28yo right-handed F with HTN, prediabetes, obesity, presenting for right hand pain; seen in this ED this morning for the same and was advised tylenol and ibuprofen at home, provided with wrist splint. Symptoms persist but have not worsened. Hypertensive on arrival, vital signs otherwise reassuring. History and exam consistent with carpal tunnel. Pain in median nerve distribution distal to right wrist. No indication of arterial or venous involvement. No symptoms proximally and symptoms not exacerbated by [id number], less likely thoracic outlet syndrome; would not pursue imaging at this time. Advised rest, ice, home OTC pain medication as previously advised; will add gabapentin. 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 Upreg negative. Considered course of steroids however as young patient with prediabetes will try gabapentin first. Given dose of IM toradol here. Advised to followup with PCP for HTN. Discharged home to close followup with PCP; discharge instructions and return precautions were reviewed with patient who verbalized understanding. All questions were answered and she is in full agreement with the plan. Medical Records Medical records reviewed: Yes I reviewed the patient's medical records. Medical records narrative: ED visit note earlier today Quality:SDOH Health Related Social Needs: No Data to Display PFSH All Active Problems (Updated 09/10/23 @ 00:42 by Tanisha Quezada MD) Nerve pain (Acute) Carpal tunnel syndrome (Acute) Thoracic outlet syndrome (Acute) Hyperlipidemia (Acute) Abnormal uterine bleeding (AUB) (Acute) Pre-diabetes (Acute) HTN (hypertension), benign (Acute) Hypothyroidism (Chronic) Contraceptive surveillance, unspecified (Acute) 10/2021. Pt not sexually active. Morbid obesity with BMI of 60.0-69.9, adult (Acute) Oligomenorrhea (Acute) 10/2021. No menses x 1yr. 11/2021 agrees to q3mo Provera induced withdrawal bleed. Surgical History History of cholecystectomy (~09/24/12) Family History Maternal Grandmother Anxiety Heart disease Hypertension Maternal Uncle Asthma Heart disease Hypertension Brother Asthma Maternal Cousin Asthma Maternal Aunt Asthma Paternal Cousin Lung cancer Maternal Grandfather Cancer Diabetes Hypertension Paternal Grandfather , Heart attack Diabetes Heart disease Hypertension Paternal Grandmother Multiple sclerosis Other Depression Social History Smoking/Tobacco Use Status: Never Second Hand Exposure: No Smoking risk assessment performed?: Yes Alcohol Intake: current Alcohol Intake frequency: a few times a month Alcohol type: other Drug use: Never Substance use type: does not use Adopted: No Caregiver/Support person: No Foster care: No Household members: family and other Details: Multiple family members live in her uncle's house Housing: house Number of Children: 0 number of grandchildren: 0 Communication Needs: None Education Level: high school Do you need help understanding health information?: Rarely 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[employer], 4, 5, 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[employer] Pets and animals: Yes Pets and animals: cat(s) Sexually active: Yes Do you think of yourself as: straight/heterosexual Current gender identity: female What is your relationship status?: never How often do you talk on the phone with friends or family?: never How often do you get together with friends or relatives?: twice per week Do you belong to any clubs or organized social groups?: no Panel score (0-1 are the most socially isolated patients): 0 What type of physical activity do you participate in: none Special katya needs: No Seatbelt use: always Helmet use: Yes Helmet use: always Drive 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 Do you feel safe at home: Yes Do you feel safe in your relationship?: Yes Female Reproductive History Menstrual Age of Menarche: 11 control method: none History History 0 Para Hx # Term Pregnancies Multiple births Hx # Pregnancies Ectopic pregnancies AB induced Hx Number of Living Children AB spontaneous Discharge Plan Disposition Patient Disposition: Home Condition: Good Discharge Details Clinical Impression: Carpal tunnel syndrome, Nerve pain Primary Care Provider: Gala Copeland ED Provider: Tanisha Quezada Home Meds and New Rx's Prescriptions: New gabapentin 300 mg capsule 300 mg PO TID Qty: 45 0RF Continued levothyroxine 75 mcg tablet 75 mcg PO DAILY Qty: 90 3RF metformin 500 mg tablet 1,000 mg PO DAILY Qty: 180 3RF multivitamin Tablet 1 tab PO DAILY cholecalciferol (vitamin D3) 25 mcg (1,000 unit) capsule 25 mcg PO DAILY hydrochlorothiazide 25 mg tablet 25 mg PO DAILY Qty: 90 3RF Discharge Instructions Additional Instructions: Continue to use your splint at home and especially while sleeping or at work. Continue taking tylenol and ibuprofen over the counter for pain; follow the directions on the bottle. You can also take gabapentin every 8 hours as needed for pain. Call your primary care doctor today to schedule an appointment within the next two days to follow up on your visit here and to discuss further pain control, testing, or referral for surgery. You also need to discuss your blood pressure with your primary care doctor as it is high today. Return to the emergency department for new or worsening symptoms including inability to use your hand, swelling in your arm, color changes in your hand, or worsening pain. Stand Alone Forms: Work Release Referrals: Gala Copeland NP [Primary Care Provider] -
[2023-09-10] MEDS: Ketorolac 15 MG/ML VIAL IM (00:38)
[2023-09-10] MEDS: Gabapentin 300 MG CAP PO (00:38)
[2023-09-10 01:04] VITALS: BP 162/92; PULSE 80; RESP 16; TEMP 36.8; O2SAT 98
== END 2023-09-10 00:50 | disposition home or self-care (01) ==
PROVIDERS: Emergency Provider Student in an Organized Health Care Education/Training Program; PCP Nurse Practitioner
DX: G56.01 Carpal tunnel syndrome, right upper limb (principal); M79.2 Neuralgia and neuritis, unspecified; M79.631 Pain in right forearm; E66.01 Morbid (severe) obesity due to excess calories; Z68.44 Body mass index [BMI] 60.0-69.9, adult
CPT/HCPCS: 81025; 96372; 99284; 99283; J1885

== ENCOUNTER 2023-09-30 05:17 | Outpatient (CLI) | payer BC, SELFPAY ==
[2023-09-30 07:54] LABS: Calculated LDL 127 mg/dL (<100); Cholesterol 194 mg/dL (<200); HDL Cholesterol 34 mg/dL (40-60); TSH (W/Ref FT4) 3.77 uIU/mL (0.36-3.74); Triglyceride 165 mg/dL (<150)
[2023-09-30 08:11] LABS: FREE T4 0.88 ng/dL (0.76-1.46); Uric Acid 6.7 mg/dL (2.6-6.0)
== END 2023-09-30 05:18 | disposition home or self-care (01) ==
LOC: LBO 05:17
PROVIDERS: PCP Nurse Practitioner; Referring Provider Nurse Practitioner; Visit Provider Nurse Practitioner
DX: E03.9 Hypothyroidism, unspecified; E78.5 Hyperlipidemia, unspecified
CPT/HCPCS: 36415; 80061; 84439; 84443; 84550